=== PATIENT | female | born 2000 | race Caucasian/White ===

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

== ENCOUNTER 2019-10-05 16:49 | Emergency (ER) | payer OTHER ==
[~2019-10-05] VITALS: Ht 172.7 cm; Wt 113.0 kg
[2019-10-05 17:01] VITALS: BP 134/94
[2019-10-05] MEDS ORDERED: IBUPROFEN 800MG TABLET PO ONE (17:15)
== END 2019-10-05 17:49 | disposition home or self-care (01) ==
LOC: ER 16:49
DX: H60.90 Unspecified otitis externa, unspecified ear (principal); H66.90 Otitis media, unspecified, unspecified ear
CPT/HCPCS: 99282

== ENCOUNTER 2019-10-18 12:00 | Emergency (ER) | payer OTHER ==
[~2019-10-18] VITALS: Ht 172.7 cm; Wt 118.0 kg
[2019-10-18 12:18] VITALS: BP 159/74
[2019-10-18] MEDS ORDERED: KETOROLAC 60MG/2ML VIAL IM ONE (16:30)
== END 2019-10-18 17:15 | disposition home or self-care (01) ==
LOC: ER 12:00
DX: M79.671 Pain in right foot (principal)
CPT/HCPCS: 73630; 81025; 96372; 99283; J1885